=== PATIENT | male | born 1990 | race African-American/Black ===

== ENCOUNTER 2016-12-01 11:41 | Emergency (ER) | payer SELFPAY ==
--- NOTE | 2016-12-01 13:11 | ER Document Report ---
HPI - HPI Patient complains to provider of: right arm pain Pain Level: 5 Context: 26 yo male c/o pain to right clavicle. punched a tree yesterday. Associated Symptoms: None Exacerbated by: Movement Relieved by: Denies Similar symptoms previously: No Recently seen / treated by doctor: No - DERM Skin Color: Normal Past Medical History - Social History Smoking Status: Never Smoker Frequency of alcohol use: None Drug Abuse: None Lives with: Family Family History: Reviewed & Not Pertinent Patient has suicidal ideation: No Patient has homicidal ideation: No Renal/ Medical History: Denies: Hx Peritoneal Dialysis - Immunizations Hx Diphtheria, Pertussis, Tetanus Vaccination: Yes Vertical Provider Document - CONSTITUTIONAL Agree With Documented VS: Yes Exam Limitations: No Limitations General Appearance: WD/WN, No Apparent Distress - INFECTION CONTROL TRAVEL OUTSIDE OF THE [place] IN LAST 30 DAYS: No - HEENT HEENT: Atraumatic, PERRLA - NECK Neck: Normal Inspection, Supple - RESPIRATORY Respiratory: Breath Sounds Normal, No Respiratory Distress O2 Sat by Pulse Oximetry: 98 - CARDIOVASCULAR Cardiovascular: Regular Rate, Regular Rhythm - MUSCULOSKELETAL/EXTREMETIES Musculoskeletal/Extremeties: Tender - proximal clavicular tenderness - NEURO Level of Consciousness: Awake, Alert, Appropriate - DERM Integumentary: Warm, Dry Course - Re-evaluation Re-evalutation: 12/01/16 14:16 xrays negative. results reviewed with patient. sling applied. pt stable for discharge - Vital Signs Vital signs: Temp Pulse Resp BP Pulse Ox 98.1 F 80 18 132/74 H 98 12/01/16 11:47 12/01/16 11:47 12/01/16 11:47 12/01/16 11:47 12/01/16 11:47 Procedures - Immobilization right arm Immobilizer type: Sling Performed by: PCT Post-Proc Neuro Vasc Exam: Normal Alignment checked and good: Yes Discharge - Discharge Clinical Impression: Right shoulder injury Qualifiers: Encounter type: initial encounter Qualified Code(s): S49.91XA - Unspecified injury of right shoulder and upper arm, initial encounter Condition: Stable Disposition: HOME, SELF-CARE Instructions: Contusion ([facility]), Sprain ([facility]), Temporary Sling ([facility]), Ice Packs ( [facility]), Ibuprofen (General) ([facility]) Additional Instructions: wear sling for comfort ice to painful area motrin for discomfort follow up with primary care if symptoms persist Prescriptions: Ibuprofen [Motrin 800 Mg Tablet] 800 mg PO Q6H #20 tablet
[2016-12-01 14:40] VITALS: BP 129/80
== END 2016-12-01 14:37 | disposition home or self-care (01) ==
LOC: ER 11:41
DX: S49.91XA Unspecified injury of right shoulder and upper arm, initial encounter (principal); M79.601 Pain in right arm; W22.8XXA Striking against or struck by other objects, initial encounter
CPT/HCPCS: 99283